=== PATIENT | female | born 1990 ===

== ENCOUNTER 2017-06-18 09:39 | Emergency (ER) | payer OTHER ==
[2017-06-18 10:08] VITALS: RESP 18; O2SAT 100
--- NOTE | 2017-06-18 10:24 | ED PDOC ---
Arrival/HPI - General Chief Complaint: Back Pain Time Seen by Provider: 06/18/17 10:04 Historian: Patient - History of Present Illness Narrative History of Present Illness (Text): 06/18/17 10:21 27yo female with no PMHx who present with complaint of lower back pain, suprapubic abdominal pain and diarrhea. Notes that back pain started one week ago and diarrhea started last night. Last diarrhea was at 0900am this morning. Reports 10episodes of diarrhea since yesterday. +Vaginal itching. she denies urinary frequency, urgency, dysuria, vaginal discharge, fever, chills, nausea, vomiting, sick contact, travel, any other complaint. Past Medical History - Provider Review Nursing Documentation Reviewed: Yes - Infectious Disease Hx of Infectious Diseases: None - Reproductive Menopause: No - Psychiatric Hx Substance Use: No - Anesthesia Hx Anesthesia: No Family/Social History - Physician Review Nursing Documentation Reviewed: Yes Family/Social History: Unknown Family HX Smoking Status: Unknown If Ever Smoked Hx Alcohol Use: No Hx Substance Use: No Allergies/Home Meds Allergies/Adverse Reactions: Allergies seafood Allergy (Uncoded 06/18/17 10:08) RASH Review of Systems - Physician Review All systems were reviewed & negative as marked: Yes - Review of Systems Constitutional: Normal Eyes: Normal ENT: Normal Respiratory: Normal Cardiovascular: Normal Gastrointestinal: Abdominal Pain, Diarrhea. absent: Constipation, Nausea, Vomiting, Hematochezia, Hematemesis Genitourinary Female: Normal Musculoskeletal: Back Pain Skin: Normal Neurological: Normal Endocrine: Normal Hemo/Lymphatic: Normal Psychiatric: Normal Physical Exam Vital Signs Reviewed: Yes Vital Signs Temp Pulse Resp BP Pulse Ox 06/18/17 13:45 66 18 112/68 100 06/18/17 12:23 98.7 F 65 18 110/65 100 06/18/17 10:04 99 F 67 18 108/69 100 Temperature: Afebrile Blood Pressure: Normal Pulse: Regular Respiratory Rate: Normal Appearance: Positive for: Well-Appearing, Non-Toxic, Comfortable Pain Distress: None Mental Status: Positive for: Alert and Oriented X 3 - Systems Exam Head: Present: Atraumatic, Normocephalic Pupils: Present: PERRL Extroacular Muscles: Present: EOMI Conjunctiva: Present: Normal Mouth: Present: Moist Mucous Membranes Neck: Present: Normal Range of Motion Respiratory/Chest: Present: Clear to Auscultation, Good Air Exchange. No: Respiratory Distress, Accessory Muscle Use Cardiovascular: Present: Regular Rate and Rhythm, Normal S1, S2. No: Murmurs Abdomen: Present: Normal Bowel Sounds, Other (soft). No: Tenderness, Distention , Peritoneal Signs, Rebound, Guarding, McBurney's Point Tender, Rovsing's Sign Present Back: Present: Normal Inspection, Paraspinal Tenderness (Diffuse paralumbar tenderness). No: CVA Tenderness, Midline Tenderness, Pain with Leg Raise Upper Extremity: Present: Normal Inspection. No: Cyanosis, Edema Lower Extremity: Present: Normal Inspection. No: Edema Neurological: Present: GCS=15, CN II-XII Intact, Speech Normal Skin: Present: Warm, Dry, Normal Color. No: Rashes Psychiatric: Present: Alert, Oriented x 3, Normal Insight, Normal Concentration Medical Decision Making ED Course and Treatment: 06/18/17 19:30 PT in ED for stated history. On further questioning Pt states back pain radiates posteriorly to her b/l lower leg. She denies previous history. Denies trauma. Notes worse pain with movement. Her pain was reproducible in ED. LS xray was added and it was negative. Lab and UA was negative. Result was DW the pt. She was Dc home with Ibuprofen and flexeril. She had no diarrhea while in ED and medication was not given at this time. She was referred to her PMD. TRT ED for any new or worsening symptoms. - Lab Interpretations Lab Results: 06/18/17 11:05 06/18/17 11:05 Lab Results 06/18/17 11:05: Sodium 137, Potassium 3.9, Chloride 103, Carbon Dioxide 22, Anion Gap 15, BUN 10, Creatinine 0.9, Est GFR ( Amer) > 60, Est GFR (Non- Af Amer) > 60, Random Glucose 90, Calcium 10.3, Total Bilirubin 0.4, AST 30, ALT 31, Alkaline Phosphatase 62, Total Protein 7.7, Albumin 4.4, Globulin 3.4, Albumin/Globulin Ratio 1.3, Lipase 70 06/18/17 11:05: PT 12.6 H, INR 1.09 H, APTT 26.7 06/18/17 11:05: WBC 4.0 L, RBC 4.03, Hgb 11.6 L, Hct 34.4 L, MCV 85.4, MCH 28.8 , MCHC 33.7, RDW 12.1, Plt Count 217, MPV 9.4, Gran % 65.9, Lymph % (Auto) 25.7 , [place] % (Auto) 8.1 H, Eos % (Auto) 0.0 L, Baso % (Auto) 0.3, Gran # 2.62, Lymph # (Auto) 1.0 L, [place] # (Auto) 0.3, Eos # (Auto) 0.0, Baso # (Auto) 0.01 06/18/17 10:33: Urine Color Yellow, Urine Appearance Clear, Urine pH 6.5, Ur Specific [place] 1.020, Urine Protein Negative, Urine Glucose (UA) Negative, Urine Ketones Trace H, Urine Blood Negative, Urine Nitrate Negative, Urine Bilirubin Negative, Urine Urobilinogen 0.2, Ur Leukocyte Esterase Negative - RAD Interpretation Radiology Orders: 06/18/17 11:55 LS SPINE WITH OBL > 18 YRS OLD [RAD] Stat - Medication Orders Current Medication Orders: Discontinued Medications Cyclobenzaprine HCl (Flexeril) 10 mg PO STAT STA Stop: 06/18/17 11:56 Last Admin: 06/18/17 12:47 Dose: 10 mg Famotidine (Pepcid) 20 mg IVP STAT STA Stop: 06/18/17 11:56 Last Admin: 06/18/17 12:47 Dose: 20 mg IVP Administration Document 06/18/17 12:47 EQ (Rec: 06/18/17 12:47 EQ [id number]) Charges for Administration # of IVP Administrations 1 Sodium Chloride (Sodium Chloride 0.9%) 1,000 mls @ 1,000 mls/hr IV .Q1H STA Stop: 06/18/17 11:44 Last Admin: 06/18/17 11:10 Dose: 1,000 mls/hr eMAR Start Stop Document 06/18/17 11:10 EQ (Rec: 06/18/17 11:31 EQ [id number]) Intravenous Solution Start Date 06/18/17 Start Time 11:10 Ketorolac Tromethamine (Toradol) 60 mg IM STAT STA Stop: 06/18/17 10:21 Last Admin: 06/18/17 10:37 Dose: 60 mg MAR Pain Assessment Document 06/18/17 10:37 EQ (Rec: 06/18/17 10:37 EQ [id number]) Pain Reassessment Is this a pain reassessment? No Sleep Is patient sleeping during reassessment? No Presence of Pain Presence of Pain Yes Pain Scale Used Pain Scale Used Numeric IM Administration Charges Document 06/18/17 10:37 EQ (Rec: 06/18/17 10:37 EQ [id number]) Charges for Administration # of IM Administrations 1 Disposition/Present on Arrival - Present on Arrival Any Indicators Present on Arrival: No History of DVT/PE: No History of Uncontrolled Diabetes: No Urinary Catheter: No History of Decub. Ulcer: No History Surgical Site Infection Following: None - Disposition Have Diagnosis and Disposition been Completed?: Yes Diagnosis: Back pain, Diarrhea, Sciatica Disposition: HOME/ ROUTINE Disposition Time: 13:35 Patient Plan: Discharge Condition: STABLE Discharge Instructions (ExitCare): Diarrhea in Adolescents and Adults Additional Instructions: Follow up with your doctor Return to ED for any new or worsening symptoms Prescriptions: Cyclobenzaprine [Cyclobenzaprine HCl] 10 mg PO TID #12 tab Ibuprofen [Motrin Tab] 600 mg PO Q6 #20 tab Referrals: PCP,NO [Primary Care Provider] - Follow up with primary [facility] [Outside] - Follow up with primary [facility] [place] [Outside] - Follow up with primary Forms: [employer] ([employer])
[2017-06-18 10:42] LABS: PH,URINE 6.5 (4.7-8.0); URINE BILIRUBIN NEGATIVE (NEGATIVE); URINE BLOOD NEGATIVE (NEGATIVE); URINE GLUCOSE (UA) NEGATIVE (NEGATIVE); URINE LEUKOCYTE ESTERASE NEGATIVE Leu/uL (NEGATIVE); URINE PROTEIN NEGATIVE mg/dL (<30 mg/dL); URINE UROBILINOGEN 0.2 E.U./dL (<1 E.U./dL)
[2017-06-18 10:44] LABS: URINE APPEARANCE CLEAR (CLEAR); URINE COLOR YELLOW (YELLOW)
[2017-06-18] MEDS ORDERED: Sodium Chloride 0.9% 1,000 ML IV STA (10:45)
[2017-06-18 11:21] LABS: BASO # 0.01 K/mm3 (0.0-2.0); BASO % 0.3 % (0.0-3.0); GRAN # 2.62 (1.4-6.5); GRAN % 65.9 % (50.0-68.0); HEMOGLOBIN 11.6 g/dL (12.0-16.0); LYMPH % 25.7 % (22.0-35.0); MEAN CELL VOLUME 85.4 fl (80.0-105.0); MEAN CORPUSCULAR HEMOGLOBIN 28.8 pg (25.0-35.0); MEAN CORPUSCULAR HGB CONC 33.7 g/dl (31.0-37.0); MEAN PLATELET VOLUME 9.4 fl (7.0-11.0); MONO # 0.3 (0.1-0.6); MONO % 8.1 % (1.0-6.0); RBC 4.03 10^6/uL (3.5-6.1); RED CELL DISTRIBUTION WIDTH 12.1 % (11.5-14.5)
[2017-06-18 11:32] LABS: ALB/GLOB RATIO 1.3 (1.1-1.8); ALBUMIN 4.4 g/dL (3.0-4.8); ALT/SGPT 31 U/L (7-56); AST/SGOT 30 U/L (14-36); BLOOD UREA NITROGEN 10 mg/dL (7-21); CALCIUM 10.3 mg/dL (8.4-10.5); GFR AFRICAN-AMERICAN > 60; GFR NON-AFRICAN AMERICAN > 60; LIPASE 70 U/L (23-300)
[2017-06-18 11:33] LABS: INR 1.09 (0.93-1.08); PARTIAL THROMBOPLASTIN TIME 26.7 Seconds (25.1-36.5); PROTHROMBIN TIME 12.6 SECONDS (9.4-12.5)
[2017-06-18 12:23] VITALS: TEMP 98.7
--- NOTE | 2017-06-18 13:04 | RAD ---
PROCEDURE: Radiographs of the Lumbar Spine. HISTORY: back pain COMPARISON: No prior. FINDINGS: BONES: Normal alignment. No listhesis. No fracture. DISC SPACES: Unremarkable. OTHER FINDINGS: None. IMPRESSION: Unremarkable radiographs of the lumbar spine.
[2017-06-18 13:45] VITALS: BP 112/68; PULSE 66
== END 2017-06-18 14:03 | disposition home or self-care (01) ==
LOC: ED 09:39
DX: R19.7 Diarrhea, unspecified (principal); M54.40 Lumbago with sciatica, unspecified side
CPT/HCPCS: 72110; 80053; 81003; 83690; 85025; 85610; 85730; 96372; 96374; 99283; J1885; J7040

== ENCOUNTER 2018-04-19 13:27 | Outpatient (CLI) | payer OTHER | END 2018-04-19 13:28 | disposition home or self-care (01) | LOC: RAD 13:27 ==